=== PATIENT | male | born 1955 | race African-American/Black ===

== ENCOUNTER 2016-10-16 17:09 | Emergency (ER) | payer OTHER ==
[~2016-10-16] VITALS: Ht 182.9 cm; Wt 74.8 kg
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
== END 2016-10-16 21:33 | disposition home or self-care (01) ==
LOC: CED 17:09 → EDBD 17:09 → CED 19:09
DX: S09.90XA Unspecified injury of head, initial encounter (principal); S13.4XXA Sprain of ligaments of cervical spine, initial encounter; S46.911A Strain of unspecified muscle, fascia and tendon at shoulder and upper arm level, right arm, initial encounter; Z23 Encounter for immunization; V43.52XA Car driver injured in collision with other type car in traffic accident, initial encounter; Y92.410 Unspecified street and highway as the place of occurrence of the external cause
CPT/HCPCS: 70450; 72125; 73060; 90471; 90715; 96372; 99285; J1170